=== PATIENT | male | born 1995 | race Hispanic/Latino ===

== ENCOUNTER 2018-08-30 19:00 | Emergency (ER) | payer SELFPAY ==
[2018-08-30] MEDS ORDERED: HYDROCODONE/ACETAMINOPHEN 5/325 MG TAB ONE (19:34)
== END 2018-08-30 20:10 | disposition home or self-care (01) ==
LOC: EDH 19:00
DX: K03.81 Cracked tooth (principal); K02.9 Dental caries, unspecified

== ENCOUNTER 2019-01-14 11:22 | Emergency (ER) | payer OTHER ==
[2019-01-14 11:54] LABS: RAPID GROUP A STREP NEGATIVE (NEGATIVE)
== END 2019-01-14 12:40 | disposition home or self-care (01) ==
LOC: EDH 11:22
DX: J06.9 Acute upper respiratory infection, unspecified (principal); Z72.0 Tobacco use
CPT/HCPCS: 87804; 87880